=== PATIENT | male | born 1995 | race Caucasian/White ===

== ENCOUNTER 2018-03-26 14:18 | Emergency (ER) | payer OTHER ==
[~2018-03-26] VITALS: Ht 175.3 cm; Wt 127.0 kg
[2018-03-26 15:12] LABS: BASOPHILS ABSOLUTE AUTO 0.05 K/mm3 (0.00-0.23); BASOPHILS PERCENT AUTO 1 % (0-2); EOSINOPHILS ABSOLUTE AUTO 0.55 K/mm3 (0.00-0.68); EOSINOPHILS PERCENT AUTO 7 % (0-6); Hemoglobin 15.6 g/dL (13.5-17.5); IMMATURE GRAN ABSOLUTE AUTO 0.02 K/mm3 (0.00-0.10); IMMATURE GRAN PERCENT AUTO 0 % (0-1); LYMPHOCYTES ABSOLUTE AUTO 1.45 K/mm3 (0.84-5.20); LYMPHOCYTES PERCENT AUTO 18 % (21-46); MONOCYTES ABSOLUTE AUTO 0.63 K/mm3 (0.16-1.47); MONOCYTES PERCENT AUTO 8 % (4-13); Mean Corpuscular HGB Conc 32.5 g/dL (31.5-36.5); Mean Corpuscular Volume 86 fL (80-100); Mean Platelet Volume 9.4 fL (9.1-12.4); NEUTROPHILS ABSOLUTE AUTO 5.17 K/mm3 (1.96-9.15); NEUTROPHILS PERCENT AUTO 66 % (41-73); Platelet Count 324 K/mm3 (150-400); RDW Coefficient Variation 12.7 % (11.7-14.2); RDW Standard Deviation 39.9 fL (35.1-46.3); Red Blood Cell Count 5.57 M/mm3 (4.30-5.90); White Blood Cell Count 7.87 K/mm3 (4.00-11.30)
[2018-03-26 15:38] LABS: Alanine Aminotransfer (ALT/SGP 44 U/L (12-78); Albumin, Blood 4.1 g/dL (3.4-5.0); Albumin/Globulin Ratio 1.1 (0.8-1.8); Alk Phos 68 U/L (50-136); Anion Gap 7 mmol/L (6-16); Aspartate Aminotrans (AST/SGOT 20 U/L (12-37); Bilirubin, Total 0.2 mg/dL (0.1-1.0); Blood Urea Nitrogen 10 mg/dL (8-24); CO2, Blood 27 mmol/L (21-32); Calcium, Blood 8.9 mg/dL (8.5-10.1); Chloride, Blood 104 mmol/L (98-108); Creatinine, Blood 0.91 mg/dL (0.60-1.20); Globulin, Blood 3.8 g/dL (2.2-4.0); Glomerular Filtration Rate >60 (60-); Glucose, Blood 104 mg/dL (70-99); Potassium, Blood 3.6 mmol/L (3.5-5.5); Sodium, Blood 138 mmol/L (136-145); Total Protein, Blood 7.9 g/dL (6.4-8.2)
== END 2018-03-26 21:54 | disposition home or self-care (01) ==
LOC: ER 14:18
PROVIDERS: Physician Assistant
DX: K62.5 Hemorrhage of anus and rectum (principal); F17.200 Nicotine dependence, unspecified, uncomplicated
CPT/HCPCS: 80053; 83690; 85025; 86850; 86900; 86901; 99283

== ENCOUNTER 2018-04-13 10:17 | Day surgery (SDC) | payer OTHER ==
[~2018-04-13] VITALS: Ht 175.3 cm; Wt 116.1 kg
[2018-04-13] MEDS ORDERED: [UNRECOGNIZED DRUG - OTHER] (10:39)
== END 2018-04-13 11:50 | disposition home or self-care (01) ==
LOC: ORSCSDS 10:17
PROVIDERS: Internal Medicine Gastroenterology
PROC: 0DJD8ZZ Inspection of Lower Intestinal Tract, Via Natural or Artificial Opening Endoscopic (ICD-10-PCS; principal; 2018-04-13 11:30)
DX: K62.5 Hemorrhage of anus and rectum (principal); K64.8 Other hemorrhoids; F31.9 Bipolar disorder, unspecified; I10 Essential (primary) hypertension; F17.210 Nicotine dependence, cigarettes, uncomplicated; E66.01 Morbid (severe) obesity due to excess calories; Z68.38 Body mass index [BMI] 38.0-38.9, adult
CPT/HCPCS: J2250; J7120

== ENCOUNTER 2019-01-04 08:14 | Day surgery (SDC) | payer OTHER ==
[~2019-01-04 08:14] MED LIST: ALBU90OI INH; [UNRECOGNIZED DRUG - OTHER]
--- NOTE | 2019-01-04 08:36 | NUR ---
History, Chart, Medications and Allergies reviewed before start of procedure. Lungs clear T/O to Auscultation. Patient confirms NPO status and agrees with scheduled surgery. Patient reports completing Chlorhexadine shower X2 prior to admission to hospital. Pre-Op teaching done. Pt verbalizes understanding.
--- NOTE | 2019-01-04 11:33 | NUR ---
Patient up to Ambulate independently. Gait steady. Discharge instructions reviewed with patient. Patient verbalizes understanding. Copy given to patient to take home. Patient States Post-Procedure ride home has been arranged. Discharged via wheelchair to private car for ride home. MEDIPORT INFO SENT HOME WITH PATIENT.
== END 2019-01-04 23:52 | disposition home or self-care (01) ==
LOC: ORSCMMR 08:14 → ORD 09:30 → ORSCMMR 23:52
PROVIDERS: Surgery
PROC: 0JH60WZ Insertion of Totally Implantable Vascular Access Device into Chest Subcutaneous Tissue and Fascia, Open Approach (ICD-10-PCS; principal; 2019-01-04 09:30)
DX: C81.11 Nodular sclerosis Hodgkin lymphoma, lymph nodes of head, face, and neck (principal); I10 Essential (primary) hypertension; F90.9 Attention-deficit hyperactivity disorder, unspecified type; F31.9 Bipolar disorder, unspecified
CPT/HCPCS: 71045; 77001; C1788; J0690; J1100; J1642; J2250; J2370; J2405; J2704; J3010; J7120

== ENCOUNTER 2019-02-18 14:06 | Day surgery (SDC) | payer OTHER | END 2019-02-18 22:53 | disposition home or self-care (01) | LOC: RAD 14:06 | DX: C81.99 Hodgkin lymphoma, unspecified, extranodal and solid organ sites (principal) | CPT/HCPCS: 36598 ==

== ENCOUNTER 2019-02-23 09:41 | Day surgery (SDC) | payer OTHER ==
[2019-02-23] MEDS ORDERED: ONDA4 PO (10:55)
[2019-02-23] MEDS ORDERED: METO10 PO (10:55)
== END 2019-02-23 10:24 | disposition home or self-care (01) ==
LOC: ATC 09:41
DX: C81.99 Hodgkin lymphoma, unspecified, extranodal and solid organ sites (principal); F17.210 Nicotine dependence, cigarettes, uncomplicated; D70.1 Agranulocytosis secondary to cancer chemotherapy; Z88.8 Allergy status to other drugs, medicaments and biological substances
CPT/HCPCS: 36591; J1642; J2997

== ENCOUNTER → 2019-05-27 | Outpatient (CLI) | payer OTHER ==
[~2019-05-27] MED LIST changes: +METO10 PO; +ONDA4 PO
== END | disposition home or self-care (01) ==
LOC: LAB SHORT 15:56 → LAB 15:56
DX: R59.9 Enlarged lymph nodes, unspecified (principal)
CPT/HCPCS: 87081

== ENCOUNTER 2019-11-22 11:17 | Day surgery (SDC) | payer OTHER ==
[~2019-11-22] VITALS: Ht 177.8 cm; Wt 117.5 kg
[~2019-11-22 11:17] MED LIST changes: +DOCU100 PO; +HYDR1TAB94 PO
--- NOTE | 2019-11-22 11:57 | NUR ---
PATIENT REQUESTS SALINE BE REMOVED FROM ALLERGY LIST.
--- NOTE | 2019-11-22 16:53 | NUR ---
PT RESTING ON STRETCHER AT THIS TIME. REVIEWED HOME CARE FOR FRACTURE REPAIR, ELEVATING ARM, ICE TO AFFECTED AREA, WARNING S/SX TO WATCH FOR, CHECKING BLOOD FLOW (CAP REFILL), MONITORING FOR NUMBNESS/TINGLING/DECREASED BLOOD FLOW. PT VERBALIZES UNDERSTANDING OF ALL INFORMATION. LAURA Aldrich RN REVIEWING ALL DC INSTRUCTIONS WITH PATIENT AT THIS TIME. CAP REFILL REMAINS BRISK (<3 SECONDS TO LEFT HAND). DENIES N/T TO HAND. ABLE TO MOVE FINGERS WITHOUT DIFFICULTY. STATES PAIN IS "MUCH WORSE THAN I THOUGHT IT WOULD BE" MEDICATING PER ORDERS. DR SEPULVEDA IN ROOM AT THIS TIME AND AWARE OF PATIENT STATUS.
--- NOTE | 2019-11-22 17:14 | NUR ---
PT DRESSED WITH ASSISTANCE - TOLERATED WELL. NO CHANGE TO CMS ON LEFT HAND/ARM. PT VERBALIZED ALL INSTRUCTIONS GIVEN. WAS MEDICATED WITH TOTAL OF 50 MCG FENTANYL IV AND 10 MG OXYCODONE PO DURING RECOVERY PROCESS (PACU/STEP). PT TOLERATING PO INTAKE. DENIES NAUSEA. IV DC TIP INTACT. TRANSFER TO WHEELCHAIR STEADY ON FEET AND DC HOME WITH DAD TO DRIVE HIM. TAKEN TO CAR VIA WC WITH INSTRUCTIONS TO DAD FOR HOME CARE BY LAURA Aldrich RN. DR SEPULVEDA REVIEWED CASE WITH PATIENT PRIOR TO DISCHARGE.
== END 2019-11-22 23:00 | disposition home or self-care (01) ==
LOC: ORSCMMR 11:17
PROVIDERS: Orthopaedic Surgery
PROC: 0PSJ04Z Reposition Left Radius with Internal Fixation Device, Open Approach (ICD-10-PCS; principal; 2019-11-22 12:30)
DX: S52.372A Galeazzi's fracture of left radius, initial encounter for closed fracture (principal); I10 Essential (primary) hypertension; F17.210 Nicotine dependence, cigarettes, uncomplicated; E66.01 Morbid (severe) obesity due to excess calories; Z68.37 Body mass index [BMI] 37.0-37.9, adult
CPT/HCPCS: C1713; J0330; J0690; J1100; J2250; J2405; J2704; J3010; J7120